=== PATIENT | female | born 1975 | race Caucasian/White ===

== ENCOUNTER 2017-06-19 01:28 | Emergency (ER) | payer BC ==
[2017-06-19 02:36] LABS: ABSOLUTE EOSINOPHILS # (AUTO) 0.1 10^3/uL (0.0-0.6); ABSOLUTE LYMPHOCYTES (AUTO) 1.7 10^3/uL (0.5-4.7); ABSOLUTE NEUT (AUTO) 13.4 10^3/uL (1.7-8.2); BASOPHILS % (AUTO) 0.3 % (0-2); EOSINOPHILS % (AUTO) 0.8 % (0-6); HEMATOCRIT 39.5 % (36.0-47.0); HEMOGLOBIN 13.3 g/dL (12.0-15.5); LYMPHOCYTES % (AUTO) 10.5 % (13-45); MEAN CORPUSCULAR HEMOGLOBIN 31.5 pg (27.0-33.4); MEAN CORPUSCULAR HGB CONC 33.6 g/dL (32.0-36.0); MEAN CORPUSCULAR VOLUME 94 fl (80-97); MONOCYTES % (AUTO) 6.4 % (3-13); PLATELET COUNT 377 10^3/uL (150-450); RED BLOOD COUNT 4.21 10^6/uL (3.72-5.28); TOTAL CELLS COUNTED % (AUTO) 100 %; WHITE BLOOD COUNT 16.3 10^3/uL (4.0-10.5)
[2017-06-19 02:44] LABS: ALANINE AMINOTRANSFERASE 63 U/L (9-52); ALKALINE PHOSPHATASE 63 U/L (38-126); ANION GAP 9 (5-19); ASPARTATE AMINO TRANSFERASE 42 U/L (14-36); BILIRUBIN,DIRECT 0.3 mg/dL (0.0-0.4); BILIRUBIN,TOTAL 0.7 mg/dL (0.2-1.3); BLOOD UREA NITROGEN 17 mg/dL (7-20); CALCIUM 10.1 mg/dL (8.4-10.2); CARBON DIOXIDE 29 mmol/L (22-30); CHLORIDE 103 mmol/L (98-107); GLUCOSE 139 mg/dL (75-110); POTASSIUM 4.4 mmol/L (3.6-5.0); SODIUM 141.4 mmol/L (137-145); TOTAL PROTEIN 6.3 g/dL (6.3-8.2)
[2017-06-19 03:07] LABS: APPEARANCE,URINE CLOUDY; BILIRUBIN,URINE NEGATIVE (NEGATIVE); COLOR,URINE YELLOW; GLUCOSE, URINE NEGATIVE (NEGATIVE); KETONES,URINE NEGATIVE (NEGATIVE); LEUKOCYTE ESTERASE,URINE TRACE (NEGATIVE); NITRITE,URINE NEGATIVE (NEGATIVE); PROTEIN,URINE NEGATIVE (NEGATIVE); URINE SPECIFIC GRAVITY 1.023; UROBILINOGEN,URINE NEGATIVE mg/dL (<2.0)
[2017-06-19] MEDS ORDERED: DICYCLOMINE HCL INJ 20 MG/2 ML AMPULE IM ONE (03:16)
[2017-06-19] MEDS ORDERED: ONDANSETRON 4 MG TAB.RAPDIS PO ONE (03:17)
--- NOTE | 2017-06-19 03:19 | ER Document Report ---
ED General - General Chief Complaint: Abdominal Pain Stated Complaint: ABDOMINAL PAIN Time Seen by Provider: 06/19/17 02:14 Notes: Patient is a 41-year-old female with a past medical history of irritable bowel syndrome, anxiety, who presents with several months of intermittent abdominal cramping, bloating, nausea, dry heaving, diarrhea alternating with constipation. Patient states that her symptoms have been ongoing since the end of March at which time she was placed on narcotic pain medications for a wrist fracture. She states that she ended up not having a bowel movement for over 10 days. After being placed on multiple laxatives she states that she was able to get her constipation to stop but has never "gotten back to normal". She was visiting her aunt here in the hospital today when she began to have worsening abdominal cramping that was described as a generalized, cramping, intermittent pain. She also notes that she tried to eat some brandon joana and crackers and this worsened her symptoms. She has not training to improve her symptoms. She is attempting to follow with her primary doctor regarding this concern but was unable to get an appointment for several additional months. She has had a colonoscopy in the past which was normal and she has been diagnosed with irritable bowel syndrome for similar symptoms in the past. She denies any fever, chest pain, shortness of breath, localization of her abdominal pain, vaginal bleeding, vaginal discharge or dysuria. TRAVEL OUTSIDE OF THE [place] IN LAST 30 DAYS: No - Related Data Allergies/Adverse Reactions: amoxicillin [Amoxicillin] Allergy (Intermediate, Verified 01/23/11 11:27) Hives Penicillins Allergy (Intermediate, Verified 01/23/11 11:27) Hives Sulfa (Sulfonamide Antibiotics) Adverse Reaction (Mild, Verified 01/23/11 11:27) Nausea novacaine Allergy (Intermediate, Uncoded 01/23/11 11:27) Hives Past Medical History - General Information source: Patient - Social History Smoking Status: Never Smoker Chew tobacco use (# tins/day): No Frequency of alcohol use: None Drug Abuse: None Lives with: Family Family History: Reviewed & Not Pertinent Patient has suicidal ideation: No Patient has homicidal ideation: No Renal/ Medical History: Denies: Hx Peritoneal Dialysis Past Surgical History: Reports: Hx Appendectomy, Hx Orthopedic Surgery - L wrist , Hx Tonsillectomy - Immunizations Hx Diphtheria, Pertussis, Tetanus Vaccination: No Review of Systems - Review of Systems Notes: Constitutional: Negative for fever. HENT: Negative for sore throat. Eyes: Negative for visual changes. Cardiovascular: Negative for chest pain. Respiratory: Negative for shortness of breath. Gastrointestinal: Positive for abdominal pain, diarrhea and nausea Genitourinary: Negative for dysuria. Musculoskeletal: Negative for back pain. Skin: Negative for rash. Neurological: Negative for headaches, weakness or numbness. 10 point ROS negative except as marked above and in HPI. Physical Exam - Vital signs Vitals: Temp Pulse Resp BP Pulse Ox 97.6 F 86 16 103/68 76 L 06/19/17 01:34 06/19/17 01:34 06/19/17 01:34 06/19/17 01:34 06/19/17 01:34 Interpretation: Normal - Please note that the initial documented pulse ox of 76 is not accurate patient was never hypoxic Notes: PHYSICAL EXAMINATION: GENERAL: Well-appearing, well-nourished and in no acute distress. HEAD: Atraumatic, normocephalic. EYES: Pupils equal round and reactive to light, extraocular movements intact, sclera anicteric, conjunctiva are normal. ENT: nares patent, oropharynx clear without exudates. Moderately dry mucous membranes. NECK: Normal range of motion, supple without lymphadenopathy LUNGS: Breath sounds clear to auscultation bilaterally and equal. No wheezes rales or rhonchi. HEART: Regular rate and rhythm without murmurs ABDOMEN: Soft, nontender, normoactive bowel sounds. No guarding, no rebound. No masses appreciated. EXTREMITIES: Normal range of motion, no pitting or edema. No cyanosis. NEUROLOGICAL: No focal neurological deficits. Moves all extremities spontaneously and on command. PSYCH: Moderately anxious SKIN: Warm, Dry, normal turgor, no rashes or lesions noted. Course - Re-evaluation Re-evalutation: 06/19/17 03:15 Presentation of generalized, intermittent abdominal pain. Abdominal pain has been ongoing for the past 3-4 months but patient reports was somewhat worse tonight. Abdominal exam is benign without any focal tenderness. Vitals are normal at the time of arrival. Laboratories are unremarkable without evidence of cystitis, , transaminitis, or pancreatitis. Moderate leukocytosis is noted but this is nonspecific and could be related to her recent episodes of vomiting. Patient is status post appendectomy. Patient is overall very well in appearance. Based on clinical history and examination I do not suspect a tubo-ovarian abscess, related pathology, pelvic inflammatory disease, mesenteric ischemia, or pyelonephritis. Right upper quadrant ultrasound is normal without any evidence of acute cholecystitis or symptomatic cholelithiasis. Two-view abdomen without evidence of obstruction or perforation. At this time will discharge with return precautions and follow-up recommendations. Verbal discharge instructions given a the bedside and opportunity for questions given. Medication warnings reviewed. Patient is in agreement with this plan and has verbalized understanding of return precautions and the need for primary care follow-up in the next 24-72 hours. - Vital Signs Vital signs: Temp Pulse Resp BP Pulse Ox 97.6 F 86 18 126/73 H 99 06/19/17 01:40 06/19/17 05:13 06/19/17 05:13 06/19/17 05:13 06/19/17 05:13 - Laboratory Result Diagrams: 06/19/17 02:20 06/19/17 02:20 Laboratory results interpreted by me: 06/19/17 06/19/17 06/19/17 02:20 02:20 02:45 WBC 16.3 H Seg Neutrophils % 82.0 H Lymphocytes % 10.5 L Absolute Neutrophils 13.4 H Glucose 139 H AST 42 H ALT 63 H Ur Leukocyte Esterase TRACE H - Diagnostic Test Radiology reviewed: Image reviewed, Reports reviewed Radiology results interpreted by me: 06/19/17 05:38 2 view abdomen: No evidence of obstruction or perforation Discharge - Discharge Clinical Impression: Generalized abdominal pain, Nausea Irritable bowel syndrome Qualifiers: Irritable bowel syndrome type: with both diarrhea and constipation Qualified Code(s): K58.2 - Mixed irritable bowel syndrome Condition: Good Disposition: HOME, SELF-CARE Additional Instructions: You have been seen in the Emergency Department (ED) for abdominal pain. Your evaluation did not identify a clear cause of your symptoms but was generally reassuring. Please follow-up with a GI doctor for colonoscopy as your history is most consistent with either irritable bowel syndrome or an inflammatory bowel syndrome. Please follow up with your doctor as soon as possible regarding today's emergent visit and the symptoms that are bothering you. Return to the ED if your abdominal pain worsens or fails to improve, you develop bloody vomiting, bloody diarrhea, you are unable to tolerate fluids due to vomiting, fever greater than 101, or other symptoms that concern you. Prescriptions: Hyoscyamine Sulfate [Levsin-Sl] 0.125 mg SL Q12HP PRN #[id number] tab.subl PRN Reason:
--- NOTE | 2017-06-19 03:43 | RADIOLOGY REPORT (SQ) ---
EXAM DESCRIPTION: ABDOMEN 2 VIEWS CLINICAL HISTORY: abdominal pain, constipation COMPARISON: None. FINDINGS: Upright and spine views of the abdomen. Bowel: No dilated loops of large or small bowel. Moderate amount of stool. Peritoneum: No free intraperitoneal air identified. Solid organs: No definite organomegaly. Calcifications: No abnormal calcifications. Bones: No acute osseous abnormalities. Other: Visualized lung bases are clear. IMPRESSION: Nonobstructive bowel gas pattern.
[2017-06-19] MEDS ORDERED: KETOROLAC TROMETHAMINE 60 MG/2 ML SDV IM ONE (04:30)
[2017-06-19] MEDS ORDERED: ONDANSETRON 4 MG TAB.RAPDIS ONE (04:38)
--- NOTE | 2017-06-19 04:39 | RADIOLOGY REPORT (SQ) ---
EXAM DESCRIPTION: U/S ABDOMEN LIMITED W/O DOP CLINICAL HISTORY: epigastric pain, pain with food COMPARISON: None. TECHNIQUE: Real-time sonographic images of the right upper abdomen were obtained using a curved multi hertz transducer. FINDINGS: Pancreas: The visualized portions of the pancreas are unremarkable. Vascular: The visualized portions of the aorta and IVC are unremarkable. Liver: The liver has normal contour and echogenicity. Hepatopedal flow in the portal vein. The common bile duct measures 0.2 cm. Gallbladder: The gallbladder has a normal appearance. No gallstones identified. No wall thickening or pericholecystic fluid. Right Kidney: The right kidney measures 9.1 cm in length. No hydronephrosis, solid renal mass, or shadowing calculi. IMPRESSION: 1. No abnormality identified in the right upper abdomen.
[2017-06-19] MEDS ORDERED: ONDANSETRON ODT 4 MG TAB (6 TAB/ER DISP) PO PRN (04:53)
[2017-06-19 05:13] VITALS: BP 126/73
== END 2017-06-19 05:13 | disposition home or self-care (01) ==
LOC: ER 01:28
DX: R10.84 Generalized abdominal pain (principal); K58.2 Mixed irritable bowel syndrome; R11.0 Nausea; Z88.2 Allergy status to sulfonamides; Z88.0 Allergy status to penicillin
CPT/HCPCS: 99284; 96372; 36415; 84703; 85025; 80053; 81001; 74019; 76705; J0500; J1885; S0119